=== PATIENT | female | born 1985 | race Caucasian/White ===

== ENCOUNTER 2024-09-01 04:24 | Day surgery (SDC) | payer OTHER ==
[2024-08-29 12:11] VITALS: BMI 23.8
[2024-09-01] MEDS ORDERED: LIDOCAINE HCL/PF 2% SDV 5ML VIAL ONE (07:12)
[2024-09-01] MEDS ORDERED: PROPOFOL 20 ML ONE (07:13)
[2024-09-01] MEDS ORDERED: MIDAZOLAM HCL 2 MG/2 ML SINGLE DOSE VIAL ONE (07:13)
[2024-09-01] MEDS ORDERED: DEXAMETHASONE SOD PHOSPHATE 4 MG/1 ML VIAL ONE (07:51)
[2024-09-01] MEDS ORDERED: ceFAZolin SODIUM 1 GM VIAL ONE (07:51)
[2024-09-01] MEDS ORDERED: KETOROLAC TROMETHAMINE 30 MG/1 ML VIAL ONE (08:21)
[2024-09-01] MEDS ORDERED: oxyCODONE HCL 5 MG TABLET PO PRN ×2 (08:22)
[2024-09-01] MEDS ORDERED: PROMETHAZINE HCL 25 MG/1 ML VIAL IVPB PRN (08:22)
[2024-09-01] MEDS ORDERED: ONDANSETRON 4 MG/2 ML VIAL IVPUSH PRN (08:22)
[2024-09-01] MEDS ORDERED: ACETAMINOPHEN 1000 MG/100 ML BAG IVPB ONE (08:30)
[2024-09-01] MEDS ORDERED: LACTATED RINGERS SOLUTION 1,000 ML IV SCH (08:30)
[2024-09-01] MEDS ORDERED: ACETAMINOPHEN 325 MG TABLET (FP) PO PRN (09:19)
[2024-09-01] MEDS ORDERED: IBUPROFEN 400 MG TABLET (FP) PO PRN (09:19)
[2024-09-01 10:22] VITALS: TEMP 97.5
[2024-09-01 10:23] VITALS: RESP 20
[2024-09-01 11:06] VITALS: BP 102/60; PULSE 52
== END 2024-09-01 11:07 | disposition home or self-care (01) ==
LOC: JASU-SURG 04:24
PROVIDERS: ATTEND Obstetrics & Gynecology
PROC: 0UDB8ZX Extraction of Endometrium, Via Natural or Artificial Opening Endoscopic, Diagnostic (ICD-10-PCS; principal; 2024-09-01 07:30)
PROC: 0UN Female Reproductive System, Release (ICD-10-PCS; 2024-09-01 07:30)
DX: D25.0 Submucous leiomyoma of uterus (principal); N84.0 Polyp of corpus uteri; N84.1 Polyp of cervix uteri; N85.6 Intrauterine synechiae
CPT/HCPCS: 81025; 88305-TC; 94760